=== PATIENT | male | born 1995 | race Asian ===

== ENCOUNTER → 2025-04-04 | Outpatient (CLI) | payer OTHER, SELFPAY ==
--- NOTE | 2025-04-04 | XR_ITS ---
EXAMINATION: PA chest single view TECHNIQUE: 1. Upright view chest single view Date and time: April 04, 2025, 1251 hours INDICATION: Positive PPD FINDINGS: Normal heart size No pneumonia or pulmonary edema. Prominent osteopenia IMPRESSION: No active disease No radiographic findings of active tuberculosis
== END | disposition home or self-care (01) ==
PROVIDERS: PCP Family Medicine; Referring Provider Family Medicine; Visit Provider Family Medicine
DX: R76.11 Nonspecific reaction to tuberculin skin test without active tuberculosis (principal); Z92.89 Personal history of other medical treatment
CPT/HCPCS: 71045